=== PATIENT | female | born 1960 | race American Indian/Alaskan Native ===

== ENCOUNTER 2016-10-19 14:10 | Emergency (ER) | payer OTHER ==
[2016-10-19 14:36] VITALS: BP 149/86
--- NOTE | 2016-10-19 15:00 | Emergency Department Report ---
Entered by RAMESH BARRAGAN, acting as scribe for MICHELLE AGARWAL NP. ED General Adult HPI - General Chief complaint: Skin/Abscess/Foreign Body Stated complaint: LUMP ON FOREHEAD Time Seen by Provider: 10/19/16 14:33 Source: patient Mode of arrival: Ambulatory Limitations: No Limitations - History of Present Illness Initial comments: 56 y/o female presents with lump on top of her head that she noticed yesterday while doing her hair at home. Pt denies fever, chills, or FAM. She denies any previous episodes with similar Sx. Pt notes she no longer has menstrual cycles. PT states she was taking out her weave when she thought she felt a bump on her scalp MD Complaint: bump -: days(s) (1) Location: head Radiation: non-radiation Quality: constant Consistency: constant Improves with: none Worsens with: none Associated Symptoms: denies other symptoms. denies: confusion, chest pain, cough, diaphoresis, fever/chills, headaches, loss of appetite, malaise, nausea/ vomiting, rash, seizure, shortness of breath, syncope, weakness Treatments Prior to Arrival: none - Related Data Previous Rx's Medication Instructions Recorded Last Taken Type Cyclobenzaprine [Flexeril 10mg] 10 mg PO TID PRN #30 tablet 06/29/14 Unknown Rx Naproxen [Naprosyn] 500 mg PO BID #30 tablet 06/29/14 Unknown Rx Gentamicin 0.3% Ophth Soln 2 drops OP Q4H #1 bottle 11/15/14 Unknown Rx Ibuprofen [Motrin] 800 mg PO Q8HR PRN #60 tablet 11/15/14 Unknown Rx traMADol [Ultram] 50 mg PO Q6HR PRN #14 tablet 11/15/14 Unknown Rx Albuterol Sulfate [Ventolin HFA] 2 puff IH Q4H PRN #1 hfa.aer.ad 06/05/15 Unknown Rx Azithromycin [Zithromax] 250 mg PO DAILY #1 pkg 06/05/15 Unknown Rx Fluticasone [Flonase] 2 spray NS QDAY #1 bottle 06/05/15 Unknown Rx Loratadine [Claritin] 10 mg PO DAILY #30 tablet 06/05/15 Unknown Rx Prednisone [predniSONE 10 mg 10 mg PO .TAPER #1 tab.ds.pk 06/05/15 Unknown Rx (6-Day Pack, 21 Tabs)] Promethazine /Codeine 5 ml PO Q6H PRN #150 ml 06/05/15 Unknown Rx [Phenergan/Codeine 6.25-10 mg/5 ml] Cephalexin [Keflex] 1,000 mg PO Q12HR #20 cap 09/27/15 Unknown Rx HYDROcodone/APAP 7.5-325 [[place] 1 each PO Q6HR PRN #20 tablet 09/27/15 Unknown Rx 7.5/325] Allergies Allergy/AdvReac Type Severity Reaction Status Date / Time No Known Allergies Allergy Verified 06/05/15 07:54 ED Review of Systems Comment: All other systems reviewed and negative Constitutional: denies: chills, fever, malaise ENT: denies: ear pain Respiratory: denies: cough, shortness of breath Cardiovascular: denies: chest pain Gastrointestinal: denies: abdominal pain, nausea, vomiting, diarrhea Genitourinary: denies: dysuria, frequency, hematuria Musculoskeletal: denies: back pain Skin: other (lump on top of head) Neurological: denies: headache ED Past Medical Hx - Past Medical History Previous Medical History?: Yes Additional medical history: "heart murmur' / LEFT HIP FRACTURE - Surgical History Past Surgical History?: Yes Additional Surgical History: lump removed from right upper rib/side area. - Social History Smoking Status: Never Smoker Substance Use Type: None - Medications Home Medications: Home Medications Medication Instructions Recorded Confirmed Last Taken Type Cyclobenzaprine [Flexeril 10mg] 10 mg PO TID PRN #30 tablet 06/29/14 Unknown Rx Naproxen [Naprosyn] 500 mg PO BID #30 tablet 06/29/14 Unknown Rx Gentamicin 0.3% Ophth Soln 2 drops OP Q4H #1 bottle 11/15/14 Unknown Rx Ibuprofen [Motrin] 800 mg PO Q8HR PRN #60 tablet 11/15/14 Unknown Rx traMADol [Ultram] 50 mg PO Q6HR PRN #14 tablet 11/15/14 Unknown Rx Albuterol Sulfate [Ventolin HFA] 2 puff IH Q4H PRN #1 hfa.aer.ad 06/05/15 Unknown Rx Azithromycin [Zithromax] 250 mg PO DAILY #1 pkg 06/05/15 Unknown Rx Fluticasone [Flonase] 2 spray NS QDAY #1 bottle 06/05/15 Unknown Rx Loratadine [Claritin] 10 mg PO DAILY #30 tablet 06/05/15 Unknown Rx Prednisone [predniSONE 10 mg 10 mg PO .TAPER #1 tab.ds.pk 06/05/15 Unknown Rx (6-Day Pack, 21 Tabs)] Promethazine /Codeine 5 ml PO Q6H PRN #150 ml 06/05/15 Unknown Rx [Phenergan/Codeine 6.25-10 mg/5 ml] Cephalexin [Keflex] 1,000 mg PO Q12HR #20 cap 09/27/15 Unknown Rx HYDROcodone/APAP 7.5-325 [[place] 1 each PO Q6HR PRN #20 tablet 09/27/15 Unknown Rx 7.5/325] ED Physical Exam - General Limitations: No Limitations General appearance: alert, in no apparent distress - Head Head exam: Present: atraumatic, normocephalic, normal inspection - Expanded Head Exam Expanded Head exam: Absent: laceration, abrasion, contusion, hematoma, racoon eyes, rodas's sign, general tenderness 1 - pt states she has a lump. no palpable mass noted - Eye Eye exam: Present: normal appearance, PERRL, EOMI Pupils: Present: normal accommodation - ENT ENT exam: Present: normal orophraynx, mucous membranes moist. Absent: mucous membranes dry - Neck Neck exam: Present: normal inspection, full ROM. Absent: tenderness, meningismus, lymphadenopathy, thyromegaly - Respiratory Respiratory exam: Present: normal lung sounds bilaterally. Absent: respiratory distress, wheezes, rales, rhonchi, stridor - Cardiovascular Cardiovascular Exam: Present: regular rate, normal rhythm, normal heart sounds. Absent: bradycardia, tachycardia, irregular rhythm, systolic murmur, diastolic murmur, rubs, gallop - GI/Abdominal GI/Abdominal exam: Present: soft, normal bowel sounds. Absent: distended, tenderness, guarding, rebound, rigid, hyperactive bowel sounds, hypoactive bowel sounds, mass, bruit - Extremities Exam Extremities exam: Present: normal inspection, full ROM, normal capillary refill. Absent: tenderness, pedal edema, joint swelling, calf tenderness - Back Exam Back exam: Present: normal inspection, full ROM. Absent: tenderness, CVA tenderness (R), CVA tenderness (L), muscle spasm, paraspinal tenderness, vertebral tenderness - Neurological Exam Neurological exam: Present: alert, oriented X3, CN II-XII intact, normal gait, reflexes normal. Absent: abnormal gait, motor sensory deficit - Psychiatric Psychiatric exam: Present: normal affect, normal mood - Skin Skin exam: Present: warm, dry, intact, normal color. Absent: rash, abrasion ED Course Vital Signs 10/19/16 14:35 Temperature 98.4 F Pulse Rate 54 L Respiratory 16 Rate Blood Pressure 149/86 O2 Sat by Pulse 99 Oximetry - Reevaluation(s) Reevaluation #1: 10/19/16 14:58 PT aware no palpable mass noted. pt aware she will need to follow up with PCP. pt has no questions at this time. Strict return precautions reviewed - Pulse Oximetry Interpretation Digit-Finger Initial Pulse Oximetry Readin Actions Taken: none ED Medical Decision Making - Differential Diagnosis abscess, cyst, mass Critical Care Time: No ED Disposition Clinical Impression: Feared condition not demonstrated Disposition: DC-01 TO HOME OR SELFCARE Is pt being admited?: No Does the pt Need Aspirin: No Condition: Stable Instructions: Lymphadenopathy (ED) Additional Instructions: Follow up with PCP in 3-5 days Have your BP rechecked on follow up Return to the ED if you notice skin changes or have swelling to scalp or other concerns Referrals: JESSIE PEREZ MD [Referring] - 3-5 Days [facility] [Outside] - 3-5 Days Forms: Work/School Release Form(ED) Time of Disposition: 14:59 This documentation as recorded by the YUNG velasco RYAN,accurately reflects the service I personally performed and the decisions made by me,MICHELLE AGARWAL NP.
== END 2016-10-19 15:08 | disposition home or self-care (01) ==
LOC: ED 14:10
DX: R22.0 Localized swelling, mass and lump, head (principal)
CPT/HCPCS: 99282

== ENCOUNTER 2016-11-28 10:21 | Emergency (ER) | payer OTHER ==
[2016-11-28 11:09] VITALS: BP 132/75
== END 2016-11-28 18:00 | disposition left against medical advice (07) ==
LOC: ED 10:21
DX: R51 Headache (principal); R11.11 Vomiting without nausea; Z53.21 Procedure and treatment not carried out due to patient leaving prior to being seen by health care provider

== ENCOUNTER 2017-01-10 07:52 | Emergency (ER) | payer OTHER ==
[2017-01-10 08:00] VITALS: BP 120/55
[2017-01-10] MEDS ORDERED: ULTRAM PO ONE (08:17)
[2017-01-10] MEDS ORDERED: MOTRIN PO ONE (08:21)
--- NOTE | 2017-01-10 08:22 | Emergency Department Report ---
ED Back Pain/Injury HPI - General Chief Complaint: Back Pain/Injury Stated Complaint: BACK AND SIDE PAIN W/ FREQUENT URINATION Time Seen by Provider: 01/10/17 08:16 Source: patient Limitations: No Limitations - History of Present Illness Initial Comments: pt is a 56 y/o aaf with nmh who presents for right low back and flank pain x 2 week with frequent urinations, pt tx' [facility] uti at urgent care center 10 dys ago with bactrim however did not take as prescribed as she still has half of her rx in hand. symptoms now include 4/10 right sided low back pain radiating to right lateral leg pain is exacerbated by bending and twisting pain is relieved by ibuprofen 800 mg prn, pt states urinary symptoms also remain frequency and urgency no vaginal discharge no bleeding no fever no chills no nv/v no pelvic or abdominal pain Complaint: back pain Onset/Timin -: days(s) Similar Symptoms Previously: No Place: home Radiation: right leg Severity: moderate Severity scale (0 -10): 4 Quality: aching Consistency: intermittent Improves With: other (ibuprofen) Worsens With: movement Context: turning/twisting, bending Associated Symptoms: denies: confusion, weakness, chest pain, numbness, difficulty walking, cough, difficulty urinating, incontinence, fever/chills, constipation, headaches, abdominal pain, loss of appetite, malaise, nausea/ vomiting, rash, seizure, shortness of breath, syncope - Related Data Previous Rx's Medication Instructions Recorded Last Taken Type Cyclobenzaprine [Flexeril 10mg] 10 mg PO TID PRN #30 tablet 06/29/14 Unknown Rx Naproxen [Naprosyn] 500 mg PO BID #30 tablet 06/29/14 Unknown Rx Gentamicin 0.3% Ophth Soln 2 drops OP Q4H #1 bottle 11/15/14 Unknown Rx Ibuprofen [Motrin] 800 mg PO Q8HR PRN #60 tablet 11/15/14 Unknown Rx traMADol [Ultram] 50 mg PO Q6HR PRN #14 tablet 11/15/14 Unknown Rx Albuterol Sulfate [Ventolin HFA] 2 puff IH Q4H PRN #1 hfa.aer.ad 06/05/15 Unknown Rx Azithromycin [Zithromax] 250 mg PO DAILY #1 pkg 06/05/15 Unknown Rx Fluticasone [Flonase] 2 spray NS QDAY #1 bottle 06/05/15 Unknown Rx Loratadine [Claritin] 10 mg PO DAILY #30 tablet 06/05/15 Unknown Rx Prednisone [predniSONE 10 mg 10 mg PO .TAPER #1 tab.ds.pk 06/05/15 Unknown Rx (6-Day Pack, 21 Tabs)] Promethazine /Codeine 5 ml PO Q6H PRN #150 ml 06/05/15 Unknown Rx [Phenergan/Codeine 6.25-10 mg/5 ml] Cephalexin [Keflex] 1,000 mg PO Q12HR #20 cap 09/27/15 Unknown Rx HYDROcodone/APAP 7.5-325 [[place] 1 each PO Q6HR PRN #20 tablet 09/27/15 Unknown Rx 7.5/325] Cephalexin [Keflex] 500 mg PO BID #14 capsule 01/10/17 Unknown Rx Ibuprofen 800 mg PO TID PRN #30 tablet 01/10/17 Unknown Rx Allergies Allergy/AdvReac Type Severity Reaction Status Date / Time tramadol AdvReac Unknown Verified 01/10/17 08:23 ED Review of Systems ROS: Stated complaint: BACK AND SIDE PAIN W/ FREQUENT URINATION Other details as noted in HPI Constitutional: denies: chills, fever Eyes: denies: eye pain, eye discharge, vision change ENT: denies: ear pain, throat pain Respiratory: denies: cough, shortness of breath, wheezing Cardiovascular: denies: chest pain, palpitations Endocrine: no symptoms reported Gastrointestinal: denies: abdominal pain, nausea, diarrhea Genitourinary: urgency, frequency. denies: hematuria, discharge, abnormal menses, dyspareunia Musculoskeletal: back pain. denies: joint swelling, arthralgia Skin: denies: rash, lesions Neurological: denies: headache, weakness, numbness, paresthesias, confusion, vertigo Psychiatric: denies: anxiety, depression Hematological/Lymphatic: denies: easy bleeding, easy bruising ED Past Medical Hx - Past Medical History Previous Medical History?: Yes Additional medical history: "heart murmur' / LEFT HIP FRACTURE - Surgical History Past Surgical History?: Yes Additional Surgical History: fatty tissue removed from right upper rib/side area, Oral surgery - Social History Smoking Status: Never Smoker Substance Use Type: None - Medications Home Medications: Home Medications Medication Instructions Recorded Confirmed Last Taken Type Cyclobenzaprine [Flexeril 10mg] 10 mg PO TID PRN #30 tablet 06/29/14 Unknown Rx Naproxen [Naprosyn] 500 mg PO BID #30 tablet 06/29/14 Unknown Rx Gentamicin 0.3% Ophth Soln 2 drops OP Q4H #1 bottle 11/15/14 Unknown Rx Ibuprofen [Motrin] 800 mg PO Q8HR PRN #60 tablet 11/15/14 Unknown Rx traMADol [Ultram] 50 mg PO Q6HR PRN #14 tablet 11/15/14 Unknown Rx Albuterol Sulfate [Ventolin HFA] 2 puff IH Q4H PRN #1 hfa.aer.ad 06/05/15 Unknown Rx Azithromycin [Zithromax] 250 mg PO DAILY #1 pkg 06/05/15 Unknown Rx Fluticasone [Flonase] 2 spray NS QDAY #1 bottle 06/05/15 Unknown Rx Loratadine [Claritin] 10 mg PO DAILY #30 tablet 06/05/15 Unknown Rx Prednisone [predniSONE 10 mg 10 mg PO .TAPER #1 tab.ds.pk 06/05/15 Unknown Rx (6-Day Pack, 21 Tabs)] Promethazine /Codeine 5 ml PO Q6H PRN #150 ml 06/05/15 Unknown Rx [Phenergan/Codeine 6.25-10 mg/5 ml] Cephalexin [Keflex] 1,000 mg PO Q12HR #20 cap 09/27/15 Unknown Rx HYDROcodone/APAP 7.5-325 [[place] 1 each PO Q6HR PRN #20 tablet 09/27/15 Unknown Rx 7.5/325] Cephalexin [Keflex] 500 mg PO BID #14 capsule 01/10/17 Unknown Rx Ibuprofen 800 mg PO TID PRN #30 tablet 01/10/17 Unknown Rx ED Physical Exam - General Limitations: No Limitations General appearance: alert, in no apparent distress - Head Head exam: Present: atraumatic, normocephalic - Eye Eye exam: Present: normal appearance, PERRL, EOMI Pupils: Present: normal accommodation - ENT ENT exam: Present: mucous membranes moist - Neck Neck exam: Present: normal inspection, full ROM. Absent: tenderness, lymphadenopathy, thyromegaly - Respiratory Respiratory exam: Present: normal lung sounds bilaterally. Absent: respiratory distress, wheezes, stridor - Cardiovascular Cardiovascular Exam: Present: regular rate, normal rhythm. Absent: systolic murmur, diastolic murmur, rubs, gallop - GI/Abdominal GI/Abdominal exam: Present: soft, normal bowel sounds. Absent: distended, tenderness, guarding, rebound, rigid, organomegaly, mass, bruit, pulsatile mass , hernia - Rectal Rectal exam: Present: deferred - Extremities Exam Extremities exam: Present: normal inspection, full ROM, normal capillary refill. Absent: pedal edema, joint swelling, calf tenderness - Back Exam Back exam: Present: normal inspection, full ROM, tenderness (right lateral flank ), CVA tenderness (R), muscle spasm, paraspinal tenderness. Absent: CVA tenderness (L), vertebral tenderness, rash noted - Expanded Back Exam Expanded Back exam: Absent: saddle anesthesia Back exam: Sciatic Notch Tenderness: Right, Positive Straight Leg Raise: Right, Negative Straight Leg Raising: Left - Neurological Exam Neurological exam: Present: alert, oriented X3, CN II-XII intact, normal gait, reflexes normal. Absent: motor sensory deficit - Psychiatric Psychiatric exam: Present: normal affect, normal mood - Skin Skin exam: Present: warm, dry, intact, normal color. Absent: rash ED Course Vital Signs 01/10/17 07:57 Temperature 98.3 F Pulse Rate 70 Respiratory 16 Rate Blood Pressure 120/55 O2 Sat by Pulse 98 Oximetry ED Medical Decision Making - Lab Data Laboratory Tests 01/10/17 08:36 Urine Color Straw Urine Turbidity Clear Urine pH 6.0 Ur Specific [place] 1.013 Urine Protein <15 mg/dl Urine Glucose (UA) Neg Urine Ketones Neg Urine Blood Neg Urine Nitrite Neg Urine Bilirubin Neg Urine Urobilinogen < 2.0 Ur Leukocyte Esterase Mod Urine WBC (Auto) 1.0 Urine RBC (Auto) 1.0 U Epithel Cells (Auto) < 1.0 Urine Mucus Few - Medical Decision Making pt is a 56 y/o aaf with nmh who presents for right low back and flank pain x 2 week with frequent urinations, pt tx' for uti at urgent care center 10 dys ago with bactrim however did not take as prescribed as she still has half of her rx in hand. symptoms now include 4/10 right sided low back pain radiating to right lateral leg pain is exacerbated by bending and twisting pain is relieved by ibuprofen 800 mg prn, pt states urinary symptoms also remain frequency and urgency no vaginal discharge no bleeding no fever no chills no nv/v no pelvic or abdominal pain exam: pt rec'd a/o x 3 appears well nontoxic well nourished well hydrated, no posterior vertebral point tenderness, rom intact , pos straight leg raise right at 60 degrees sitting, there is no weakness, numbness, tingling, or paresthesia pt is ambulatory gait is steady, noted mild right cva tenderness, Ua: leuks, wbc , given hx will tx for uti with keflex, and ibuprofen, will follow up with [facility] [phone], pt verbalized agreement and understanding with same. Critical care attestation.: If time is entered above; I have spent that time in minutes in the direct care of this critically ill patient, excluding procedure time. ED Disposition Clinical Impression: UTI (urinary tract infection) Qualifiers: Urinary tract infection type: acute cystitis Hematuria presence: without hematuria Qualified Code(s): N30.00 - Acute cystitis without hematuria Back pain Qualifiers: Back pain location: low back pain Chronicity: acute Back pain laterality: right Sciatica presence: with sciatica Sciatica laterality: sciatica of right side Qualified Code(s): M54.41 - Lumbago with sciatica, right side Disposition: - TO HOME OR SELFCARE Is pt being admited?: No Does the pt Need Aspirin: No Condition: Good Instructions: Urinary Tract Infection in Women (ED), Low Back Strain (ED) Additional Instructions: follow up with [facility] in 2 days Prescriptions: Cephalexin [Keflex] 500 mg PO BID #14 capsule Ibuprofen 800 mg PO TID PRN #30 tablet PRN Reason: Pain Referrals: PRIMARY CARE, [Primary Care Provider] - 3-5 Days Forms: Work/School Release Form(ED) Time of Disposition: 09:21
[2017-01-10 08:50] LABS: Bilirubin,Urine NEG (Negative); Blood,Urine NEG (Negative); Ketones,Urine NEG (Negative); Leukocyte Esterase,Urine MOD (Negative); Mucus,Urine FEW /HPF; Nitrite,Urine NEG (Negative); Protein,Urine <15 mg/dL mg/dL (Negative); Urobilinogen,Urine < 2.0 mg/dL (<2.0)
== END 2017-01-10 09:40 | disposition home or self-care (01) ==
LOC: ED 07:52
DX: N30.00 Acute cystitis without hematuria (principal); M54.41 Lumbago with sciatica, right side
CPT/HCPCS: 81001

== ENCOUNTER 2017-06-25 07:43 | Emergency (ER) | payer OTHER ==
[2017-06-25 09:43] LABS: Bilirubin,Urine NEG (Negative); Blood,Urine NEG (Negative); Color,Urine Yellow (Yellow); Mucus,Urine FEW /HPF; Protein,Urine <15 mg/dL mg/dL (Negative); Urobilinogen,Urine < 2.0 mg/dL (<2.0)
--- NOTE | 2017-06-25 10:31 | Emergency Department Report ---
ED Abdominal Pain HPI - General Chief Complaint: Abdominal Pain Stated Complaint: LEFT FLANK PAIN Time Seen by Provider: 06/25/17 10:19 Source: patient Mode of arrival: Ambulatory Limitations: No Limitations - History of Present Illness MD Complaint: flank pain (Left flank pain, 1 week, occasional nausea, now mild was modearte. no cp or sob ) -: Gradual, week(s) (1) Location: L flank Radiation: none Severity: mild Severity scale (0 -10): 3 Quality: aching Consistency: other (better now) Associated Symptoms: other (no cp or sob or back or neck pain or h/a or visual distrubances, no gait distubances no h/a no tia or cva like symptoms. no acs like signs or symptoms). denies: vomiting, diarrhea, fever, constipation, dysuria, hematemesis, hematochezia, melena, hematuria, anorexia, syncope - Related Data Previous Rx's Medication Instructions Recorded Last Taken Type Cyclobenzaprine [Flexeril 10mg] 10 mg PO TID PRN #30 tablet 06/29/14 Unknown Rx Naproxen [Naprosyn] 500 mg PO BID #30 tablet 06/29/14 Unknown Rx Gentamicin 0.3% Ophth Soln 2 drops OP Q4H #1 bottle 11/15/14 Unknown Rx Ibuprofen [Motrin] 800 mg PO Q8HR PRN #60 tablet 11/15/14 Unknown Rx traMADol [Ultram] 50 mg PO Q6HR PRN #14 tablet 11/15/14 Unknown Rx Albuterol Sulfate [Ventolin HFA] 2 puff IH Q4H PRN #1 hfa.aer.ad 06/05/15 Unknown Rx Azithromycin [Zithromax] 250 mg PO DAILY #1 pkg 06/05/15 Unknown Rx Fluticasone [Flonase] 2 spray NS QDAY #1 bottle 06/05/15 Unknown Rx Loratadine [Claritin] 10 mg PO DAILY #30 tablet 06/05/15 Unknown Rx Prednisone [predniSONE 10 mg 10 mg PO .TAPER #1 tab.ds.pk 06/05/15 Unknown Rx (6-Day Pack, 21 Tabs)] Promethazine /Codeine 5 ml PO Q6H PRN #150 ml 06/05/15 Unknown Rx [Phenergan/Codeine 6.25-10 mg/5 ml] Cephalexin [Keflex] 1,000 mg PO Q12HR #20 cap 09/27/15 Unknown Rx HYDROcodone/APAP 7.5-325 [[employer] 1 each PO Q6HR PRN #20 tablet 09/27/15 Unknown Rx 7.5/325] Cephalexin [Keflex] 500 mg PO BID #14 capsule 01/10/17 Unknown Rx Ibuprofen 800 mg PO TID PRN #30 tablet 01/10/17 Unknown Rx Allergies Allergy/AdvReac Type Severity Reaction Status Date / Time No Known Allergies Allergy Unverified 06/25/17 08:03 ED Review of Systems ROS: Stated complaint: LEFT FLANK PAIN Other details as noted in HPI Constitutional: denies: chills, fever Eyes: denies: eye pain, eye discharge, vision change ENT: denies: ear pain, throat pain Respiratory: denies: cough, shortness of breath, wheezing Cardiovascular: denies: chest pain, palpitations Endocrine: no symptoms reported Gastrointestinal: nausea, other (l flank pain, aching). denies: abdominal pain , diarrhea Genitourinary: denies: urgency, dysuria, discharge Musculoskeletal: denies: back pain, joint swelling, arthralgia Skin: denies: rash, lesions Neurological: denies: headache, weakness, paresthesias Psychiatric: denies: anxiety, depression Hematological/Lymphatic: denies: easy bleeding, easy bruising ED Past Medical Hx - Past Medical History Previous Medical History?: No Additional medical history: "heart murmur' / LEFT HIP FRACTURE - Surgical History Hx Appendectomy: Yes Additional Surgical History: fatty tissue removed from right upper rib/side area, Oral surgery - Social History Smoking Status: Never Smoker Substance Use Type: None - Medications Home Medications: Home Medications Medication Instructions Recorded Confirmed Last Taken Type Cyclobenzaprine [Flexeril 10mg] 10 mg PO TID PRN #30 tablet 06/29/14 Unknown Rx Naproxen [Naprosyn] 500 mg PO BID #30 tablet 06/29/14 Unknown Rx Gentamicin 0.3% Ophth Soln 2 drops OP Q4H #1 bottle 11/15/14 Unknown Rx Ibuprofen [Motrin] 800 mg PO Q8HR PRN #60 tablet 11/15/14 Unknown Rx traMADol [Ultram] 50 mg PO Q6HR PRN #14 tablet 11/15/14 Unknown Rx Albuterol Sulfate [Ventolin HFA] 2 puff IH Q4H PRN #1 hfa.aer.ad 06/05/15 Unknown Rx Azithromycin [Zithromax] 250 mg PO DAILY #1 pkg 06/05/15 Unknown Rx Fluticasone [Flonase] 2 spray NS QDAY #1 bottle 06/05/15 Unknown Rx Loratadine [Claritin] 10 mg PO DAILY #30 tablet 06/05/15 Unknown Rx Prednisone [predniSONE 10 mg 10 mg PO .TAPER #1 tab.ds.pk 06/05/15 Unknown Rx (6-Day Pack, 21 Tabs)] Promethazine /Codeine 5 ml PO Q6H PRN #150 ml 06/05/15 Unknown Rx [Phenergan/Codeine 6.25-10 mg/5 ml] Cephalexin [Keflex] 1,000 mg PO Q12HR #20 cap 09/27/15 Unknown Rx HYDROcodone/APAP 7.5-325 [[employer] 1 each PO Q6HR PRN #20 tablet 09/27/15 Unknown Rx 7.5/325] Cephalexin [Keflex] 500 mg PO BID #14 capsule 01/10/17 Unknown Rx Ibuprofen 800 mg PO TID PRN #30 tablet 01/10/17 Unknown Rx ED Physical Exam - General Limitations: No Limitations General appearance: alert, in no apparent distress - Head Head exam: Present: atraumatic, normocephalic - Eye Eye exam: Present: normal appearance - ENT ENT exam: Present: normal orophraynx, mucous membranes moist - Neck Neck exam: Present: normal inspection - Respiratory Respiratory exam: Present: normal lung sounds bilaterally. Absent: respiratory distress, rhonchi, stridor, decreased breath sounds, prolonged expiratory - Cardiovascular Cardiovascular Exam: Present: regular rate, normal rhythm, normal heart sounds. Absent: systolic murmur, diastolic murmur, rubs, gallop - GI/Abdominal GI/Abdominal exam: Present: soft, normal bowel sounds. Absent: distended, tenderness, guarding, rebound, rigid, mass - Extremities Exam Extremities exam: Present: normal inspection - Back Exam Back exam: Present: normal inspection, full ROM. Absent: tenderness - Neurological Exam Neurological exam: Present: alert, altered, oriented X3, CN II-XII intact, normal gait, motor sensory deficit - Psychiatric Psychiatric exam: Present: normal affect, normal mood. Absent: anxious - Skin Skin exam: Present: warm, dry, intact, normal color. Absent: rash ED Course Vital Signs 06/25/17 08:00 Temperature 98.2 F Pulse Rate 68 Respiratory 18 Rate Blood Pressure 140/74 O2 Sat by Pulse 96 Oximetry ED Medical Decision Making - Lab Data Result diagrams: 06/25/17 12:09 06/25/17 12:09 - Radiology Data Radiology results: report reviewed (non obstructing tiny stone to R kidney. no diverticulitis or l hydro or any other abnormality) interpreted by me: ct results were discussed with pt, and pt was advised to establish a pmd, and a GI and obtain colonsocopy. - Medical Decision Making PT DOES NOT HAVE KIDNEY STONE OR DIVERTIC OR COLITIS, PT DOES NOT HAVE UTI. NOW PT GIVES ADDITONAL HX THAT PAIN OS TENDER, ALOMNG BONY MARY IN L FLANK, AND HURTS WHEN SHE " TWISTS" PT DENIES CP AND L ARM PAIN AND TEETH OR JAW PAIN OR SMOKING, AND PT STATES NO VOM OR DIARRHEA. pT DID SAW INCREASED FREQUENCY, BUT REPORTED DRINKING MORE WATER. UA AND LABS WERE NORMAL. PTS PAIN IS PROBABLY MUSKULOSKELETAL.PT ADVISED TO ESTABLISH PMD AND GI-FOR COLONOSCOPY AND TO CONTINUE TO SEARCH FOR ANSWERS. WITH [employer]ICONDU[employer] PACKAGES LEAK TESTER - Differential Diagnosis KIDNEY STONE, AAA, UTI, COLITIS Critical Care Time: No Critical care attestation.: If time is entered above; I have spent that time in minutes in the direct care of this critically ill patient, excluding procedure time. ED Disposition Clinical Impression: Left flank pain, Total bilirubin, elevated Disposition: DC-01 TO HOME OR SELFCARE Is pt being admited?: No Does the pt Need Aspirin: No Condition: Stable Instructions: Abdominal Pain (ED) Additional Instructions: We were unable to find an emergent reason to explain your symptoms. Our radiologist has reported that you had a tiny non obstructing kidney stone in the right kidney, but no other findings. Our lab reported that your urine did not show a urine infection pattern. Establish a primary care doctor, and continue to search for answers. Establish a internal audit consultant and arrange a screening colonoscopy.nery doctor should also do cholesterol screening and electrocardiogram. Return immediately if you have pain, or feel sick, or have trouble breathing or have fever. Additionally, your bilirubin lab test was elevated. You must arrange an evaluation with a primary doctor and internal audit consultant promplty. Referrals: PRIMARY CARE, [Primary Care Provider] - 3-5 Days ROMA RABAGO MD [Staff Physician] - 3-5 Days BELLE FORD MD [Staff Physician] - 3-5 Days
[2017-06-25] MEDS ORDERED: ZOFRAN ODT PO ONE (10:32)
--- NOTE | 2017-06-25 11:20 | Cat Scan Report ---
CT scan of abdomen and pelvis without IV contrast: History: Left flank pain. Nausea. Findings: Normal lung bases. No pleural or pericardial effusion. Normal liver spleen pancreas and gallbladder. Normal adrenals. Nonobstructing 2 mm calculus right kidney. No calculi left kidney. No evidence of hydronephrosis. Normal bladder. No free intraperitoneal fluid or air. No evidence of adenopathy. Normal aorta. Gaseous colon with stool in colon. No evidence of bowel distention or wall thickening. No evidence of diverticulitis. Impression: Nonobstructing tiny calculus right kidney. No evidence of diverticulitis or left hydronephrosis.
[2017-06-25 12:59] LABS: Hematocrit 41.5 % (30.3-42.9); Hemoglobin 14.7 gm/dl (10.1-14.3); Mean Corpuscular HGB Conc 35 % (30-34); Mean Corpuscular Hemoglobin 32 pg (28-32); Mean Corpuscular Volume 89 fl (79-97); Platelet Count 313 K/mm3 (140-440); Red Blood Count 4.65 M/mm3 (3.65-5.03); Red Cell Distribution Width 12.7 % (13.2-15.2)
[2017-06-25 13:28] LABS: BUN/Creatinine Ratio 23; Blood Urea Nitrogen 9 mg/dL (7-17); Calcium 9.5 mg/dL (8.4-10.2); Hemolysis Index 230; Lipase 22 units/L (13-60)
[2017-06-25 13:43] LABS: Basophils % (Manual) 0 % (0.0-1.8); Eosinophils % (Manual) 0 % (0.0-4.3); Platelet Estimate Consistent w Auto; Total Cells Counted 100
[2017-06-25 14:17] LABS: Alanine Aminotransferase 17 units/L (7-56)
[2017-06-25 14:33] VITALS: BP 123/75
== END 2017-06-25 14:32 | disposition home or self-care (01) ==
LOC: ED 07:43
DX: R17 Unspecified jaundice (principal)
CPT/HCPCS: 36415; 74176; 80053; 81001; 83690; 85007; 85025; 99284; Q0162

== ENCOUNTER 2017-10-10 01:27 | Emergency (ER) | payer OTHER ==
[2017-10-10 03:04] VITALS: BP 125/73
--- NOTE | 2017-10-10 03:25 | Emergency Department Report ---
ED ENT HPI - General Chief complaint: Earache Stated complaint: RT EARACHE Time Seen by Provider: 10/10/17 03:08 Source: patient Mode of arrival: Ambulatory Limitations: No Limitations - History of Present Illness Initial comments: Patient is a 57-year-old female who presents for right ear and sinus pain 2 days symptoms include sinus pressure right ear pressure patient denies fever or chills symptoms are exacerbated by movement and postion. there is no sorethroat no dizziness no lightheadedness no n/v no veritigo complaint: ear pain Onset/Timin -: days(s) Location: R ear Severity: moderate Severity scale (0 -10): 4 Quality: aching, other (pressure ) Consistency: constant Improves with: none Worsens with: position, movement Associated Symptoms: fever, cough. denies: gum swelling, toothache, pain with swallowing, sore throat, tinnitus, hearing loss, discharge from ear, rhinorrhea - Related Data Previous Rx's Medication Instructions Recorded Last Taken Type Cyclobenzaprine [Flexeril 10mg] 10 mg PO TID PRN #30 tablet 06/29/14 Unknown Rx Naproxen [Naprosyn] 500 mg PO BID #30 tablet 06/29/14 Unknown Rx Gentamicin 0.3% Ophth Soln 2 drops OP Q4H #1 bottle 11/15/14 Unknown Rx Ibuprofen [Motrin] 800 mg PO Q8HR PRN #60 tablet 11/15/14 Unknown Rx traMADol [Ultram] 50 mg PO Q6HR PRN #14 tablet 11/15/14 Unknown Rx Albuterol Sulfate [Ventolin HFA] 2 puff IH Q4H PRN #1 hfa.aer.ad 06/05/15 Unknown Rx Azithromycin [Zithromax] 250 mg PO DAILY #1 pkg 06/05/15 Unknown Rx Fluticasone [Flonase] 2 spray NS QDAY #1 bottle 06/05/15 Unknown Rx Loratadine [Claritin] 10 mg PO DAILY #30 tablet 06/05/15 Unknown Rx Prednisone [predniSONE 10 mg 10 mg PO .TAPER #1 tab.ds.pk 06/05/15 Unknown Rx (6-Day Pack, 21 Tabs)] Promethazine /Codeine 5 ml PO Q6H PRN #150 ml 06/05/15 Unknown Rx [Phenergan/Codeine 6.25-10 mg/5 ml] Cephalexin [Keflex] 1,000 mg PO Q12HR #20 cap 09/27/15 Unknown Rx HYDROcodone/APAP 7.5-325 [[place] 1 each PO Q6HR PRN #20 tablet 09/27/15 Unknown Rx 7.5/325] Cephalexin [Keflex] 500 mg PO BID #14 capsule 01/10/17 Unknown Rx Ibuprofen 800 mg PO TID PRN #30 tablet 01/10/17 Unknown Rx Amoxicillin/Potassium Clav 1 each PO BID #20 tablet 10/10/17 Unknown Rx [Augmentin 875-125 Tablet] Dexamethasone [Decadron] 4 mg PO Q12H #6 tablet 10/10/17 Unknown Rx Ibuprofen 800 mg PO TID PRN #30 tablet 10/10/17 Unknown Rx Metoclopramide [Reglan] 10 mg PO TID PRN #30 tab 10/10/17 Unknown Rx diphenhydrAMINE [Benadryl CAP] 25 mg PO Q8HR PRN #30 capsule 10/10/17 Unknown Rx Allergies Allergy/AdvReac Type Severity Reaction Status Date / Time No Known Allergies Allergy Unverified 06/25/17 08:03 ED Dental HPI - General Chief complaint: Earache Stated complaint: RT EARACHE Time Seen by Provider: 10/10/17 03:08 Source: patient Mode of arrival: Ambulatory Limitations: No Limitations - Related Data Previous Rx's Medication Instructions Recorded Last Taken Type Cyclobenzaprine [Flexeril 10mg] 10 mg PO TID PRN #30 tablet 06/29/14 Unknown Rx Naproxen [Naprosyn] 500 mg PO BID #30 tablet 06/29/14 Unknown Rx Gentamicin 0.3% Ophth Soln 2 drops OP Q4H #1 bottle 11/15/14 Unknown Rx Ibuprofen [Motrin] 800 mg PO Q8HR PRN #60 tablet 11/15/14 Unknown Rx traMADol [Ultram] 50 mg PO Q6HR PRN #14 tablet 11/15/14 Unknown Rx Albuterol Sulfate [Ventolin HFA] 2 puff IH Q4H PRN #1 hfa.aer.ad 06/05/15 Unknown Rx Azithromycin [Zithromax] 250 mg PO DAILY #1 pkg 06/05/15 Unknown Rx Fluticasone [Flonase] 2 spray NS QDAY #1 bottle 06/05/15 Unknown Rx Loratadine [Claritin] 10 mg PO DAILY #30 tablet 06/05/15 Unknown Rx Prednisone [predniSONE 10 mg 10 mg PO .TAPER #1 tab.ds.pk 06/05/15 Unknown Rx (6-Day Pack, 21 Tabs)] Promethazine /Codeine 5 ml PO Q6H PRN #150 ml 06/05/15 Unknown Rx [Phenergan/Codeine 6.25-10 mg/5 ml] Cephalexin [Keflex] 1,000 mg PO Q12HR #20 cap 09/27/15 Unknown Rx HYDROcodone/APAP 7.5-325 [[place] 1 each PO Q6HR PRN #20 tablet 09/27/15 Unknown Rx 7.5/325] Cephalexin [Keflex] 500 mg PO BID #14 capsule 01/10/17 Unknown Rx Ibuprofen 800 mg PO TID PRN #30 tablet 01/10/17 Unknown Rx Amoxicillin/Potassium Clav 1 each PO BID #20 tablet 10/10/17 Unknown Rx [Augmentin 875-125 Tablet] Dexamethasone [Decadron] 4 mg PO Q12H #6 tablet 10/10/17 Unknown Rx Ibuprofen 800 mg PO TID PRN #30 tablet 10/10/17 Unknown Rx Metoclopramide [Reglan] 10 mg PO TID PRN #30 tab 10/10/17 Unknown Rx diphenhydrAMINE [Benadryl CAP] 25 mg PO Q8HR PRN #30 capsule 10/10/17 Unknown Rx Allergies Allergy/AdvReac Type Severity Reaction Status Date / Time No Known Allergies Allergy Unverified 06/25/17 08:03 ED Review of Systems ROS: Stated complaint: RT EARACHE Other details as noted in HPI Constitutional: no symptoms reported, malaise Eyes: denies: eye pain, eye discharge, vision change ENT: ear pain, congestion (head congestion ). denies: throat pain, dental pain , hearing loss, epistaxis Respiratory: denies: cough, shortness of breath, wheezing Cardiovascular: denies: chest pain, palpitations Endocrine: no symptoms reported Gastrointestinal: denies: abdominal pain, nausea, diarrhea Genitourinary: denies: urgency, dysuria, discharge Musculoskeletal: denies: back pain, joint swelling, arthralgia Skin: denies: rash, lesions Neurological: denies: headache, weakness, numbness, paresthesias, confusion, abnormal gait, vertigo Psychiatric: denies: anxiety, depression Hematological/Lymphatic: denies: easy bleeding, easy bruising, swollen glands ED Past Medical Hx - Past Medical History Previous Medical History?: Yes Hx Hypertension: Yes Hx GERD: Yes Hx Arthritis: Yes Additional medical history: "heart murmur' - Surgical History Hx Appendectomy: Yes Additional Surgical History: fatty tissue removed from right upper rib/side area, Oral surgery - Social History Smoking Status: Never Smoker - Medications Home Medications: Home Medications Medication Instructions Recorded Confirmed Last Taken Type Cyclobenzaprine [Flexeril 10mg] 10 mg PO TID PRN #30 tablet 06/29/14 Unknown Rx Naproxen [Naprosyn] 500 mg PO BID #30 tablet 06/29/14 Unknown Rx Gentamicin 0.3% Ophth Soln 2 drops OP Q4H #1 bottle 11/15/14 Unknown Rx Ibuprofen [Motrin] 800 mg PO Q8HR PRN #60 tablet 11/15/14 Unknown Rx traMADol [Ultram] 50 mg PO Q6HR PRN #14 tablet 11/15/14 Unknown Rx Albuterol Sulfate [Ventolin HFA] 2 puff IH Q4H PRN #1 hfa.aer.ad 06/05/15 Unknown Rx Azithromycin [Zithromax] 250 mg PO DAILY #1 pkg 06/05/15 Unknown Rx Fluticasone [Flonase] 2 spray NS QDAY #1 bottle 06/05/15 Unknown Rx Loratadine [Claritin] 10 mg PO DAILY #30 tablet 06/05/15 Unknown Rx Prednisone [predniSONE 10 mg 10 mg PO .TAPER #1 tab.ds.pk 06/05/15 Unknown Rx (6-Day Pack, 21 Tabs)] Promethazine /Codeine 5 ml PO Q6H PRN #150 ml 06/05/15 Unknown Rx [Phenergan/Codeine 6.25-10 mg/5 ml] Cephalexin [Keflex] 1,000 mg PO Q12HR #20 cap 09/27/15 Unknown Rx HYDROcodone/APAP 7.5-325 [[place] 1 each PO Q6HR PRN #20 tablet 09/27/15 Unknown Rx 7.5/325] Cephalexin [Keflex] 500 mg PO BID #14 capsule 01/10/17 Unknown Rx Ibuprofen 800 mg PO TID PRN #30 tablet 01/10/17 Unknown Rx Amoxicillin/Potassium Clav 1 each PO BID #20 tablet 10/10/17 Unknown Rx [Augmentin 875-125 Tablet] Dexamethasone [Decadron] 4 mg PO Q12H #6 tablet 10/10/17 Unknown Rx Ibuprofen 800 mg PO TID PRN #30 tablet 10/10/17 Unknown Rx Metoclopramide [Reglan] 10 mg PO TID PRN #30 tab 10/10/17 Unknown Rx diphenhydrAMINE [Benadryl CAP] 25 mg PO Q8HR PRN #30 capsule 10/10/17 Unknown Rx ED Physical Exam - General Limitations: No Limitations General appearance: alert, in no apparent distress, obese - Head Head exam: Present: atraumatic, normocephalic, normal inspection - Eye Eye exam: Present: normal appearance, PERRL, EOMI, conjunctival injection Pupils: Present: normal accommodation - ENT ENT exam: Present: normal orophraynx, mucous membranes moist, TM's normal bilaterally, normal external ear exam - Expanded ENT Exam Expanded TM/Canal exam: Erythema: Right TM (AOM right ), Effusion: Right TM, Left TM, Cerumen Impaction: Left TM, Right TM Mouth exam: Present: normal external inspection, tongue normal. Absent: trismus , tongue elevation, laceration Teeth exam: Present: normal inspection. Absent: dental tenderness # Throat exam: Positive: normal inspection, tonsillar erythema, tonsillomegaly, R peritonsillar mass, L peritonsillar mass - Neck Neck exam: Present: normal inspection, full ROM. Absent: tenderness, meningismus, lymphadenopathy, thyromegaly - Respiratory Respiratory exam: Present: normal lung sounds bilaterally, chest wall tenderness. Absent: respiratory distress - Cardiovascular Cardiovascular Exam: Present: regular rate, normal rhythm, normal heart sounds. Absent: tachycardia, systolic murmur, diastolic murmur, rubs, gallop - GI/Abdominal GI/Abdominal exam: Present: soft. Absent: distended, tenderness - Rectal Rectal exam: Present: deferred - Extremities Exam Extremities exam: Present: normal inspection - Back Exam Back exam: Present: normal inspection. Absent: tenderness, CVA tenderness (R), CVA tenderness (L), paraspinal tenderness, vertebral tenderness - Neurological Exam Neurological exam: Present: alert, oriented X3, CN II-XII intact, normal gait, reflexes normal - Psychiatric Psychiatric exam: Present: normal affect, normal mood - Skin Skin exam: Present: warm, dry, intact, normal color. Absent: rash ED Course Vital Signs 10/10/17 03:02 Temperature 98.2 F Pulse Rate 64 Respiratory 20 Rate Blood Pressure 125/73 O2 Sat by Pulse 99 Oximetry ED Medical Decision Making - Lab Data aom URI - Medical Decision Making This is a straightforward otitis media with mild right effusion with URI pain is 4/10 Aching exacerbated by movement , plan: augmentin , ultram, decadron, Benadryl, and tylenol pt will follow up with pcp in 2-3 days Critical care attestation.: If time is entered above; I have spent that time in minutes in the direct care of this critically ill patient, excluding procedure time. ED Disposition Clinical Impression: URI (upper respiratory infection) Qualifiers: URI type: unspecified viral URI Qualified Code(s): J06.9 - Acute upper respiratory infection, unspecified AOM (acute otitis media) Qualifiers: Otitis media type: serous Laterality: left Recurrence: not specified as recurrent Qualified Code(s): H65.02 - Acute serous otitis media, left ear Disposition: TO HOME OR SELFCARE Is pt being admited?: No Does the pt Need Aspirin: No Condition: Good Instructions: Otitis Media (ED) Prescriptions: Amoxicillin/Potassium Clav [Augmentin 875-125 Tablet] 1 each PO BID #20 tablet Dexamethasone [Decadron] 4 mg PO Q12H #6 tablet diphenhydrAMINE [Benadryl CAP] 25 mg PO Q8HR PRN #30 capsule PRN Reason: congestion , ear pain Ibuprofen 800 mg PO TID PRN #30 tablet PRN Reason: headache pain Metoclopramide [Reglan] 10 mg PO TID PRN #30 tab PRN Reason: Headache Referrals: [facility] [Outside] - 3-5 Days Forms: Work/School Release Form(ED) Time of Disposition: 04:03
[2017-10-10] MEDS ORDERED: MOTRIN PO ONE (03:28)
== END 2017-10-10 04:15 | disposition home or self-care (01) ==
LOC: ED 01:27
DX: H65.01 Acute serous otitis media, right ear (principal); J06.9 Acute upper respiratory infection, unspecified; I10 Essential (primary) hypertension; K21.9 Gastro-esophageal reflux disease without esophagitis; M19.90 Unspecified osteoarthritis, unspecified site; Z90.49 Acquired absence of other specified parts of digestive tract
CPT/HCPCS: 99282

== ENCOUNTER 2018-10-13 12:00 | Emergency (ER) | payer OTHER ==
[2018-10-13 12:23] VITALS: BP 142/64
--- NOTE | 2018-10-13 12:23 | Emergency Department Report ---
ED Rash HPI - HPI Chief Complaint: Skin Rash Stated Complaint: LFT LEG BITE/PAIN Time Seen by Provider: 10/13/18 12:19 Duration: 1 Day Location: Lower Extremities Suspected Cause: Insect Rash Symptoms: Yes Itching, No Facial Swelling Severity: mild Other History: insect bite to leg. pt concerned spider bite. no bulls ey e/necrosis. pt ambulatory and non toxic ED Review of Systems ROS: Stated complaint: LFT LEG BITE/PAIN Other details as noted in HPI Comment: All other systems reviewed and negative ED Past Medical Hx - Past Medical History Previous Medical History?: Yes Hx Hypertension: Yes Hx GERD: Yes Hx Arthritis: Yes Additional medical history: "heart murmur' - Surgical History Past Surgical History?: Yes Hx Appendectomy: Yes Additional Surgical History: fatty tissue removed from right upper rib/side area, Oral surgery - Social History Smoking Status: Never Smoker - Medications Home Medications: Home Medications Medication Instructions Recorded Confirmed Last Taken Type Cyclobenzaprine [Flexeril 10mg] 10 mg PO TID PRN #30 tablet 06/29/14 Unknown Rx Naproxen [Naprosyn] 500 mg PO BID #30 tablet 06/29/14 Unknown Rx Gentamicin 0.3% Ophth Soln 2 drops OP Q4H #1 bottle 11/15/14 Unknown Rx Ibuprofen [Motrin] 800 mg PO Q8HR PRN #60 tablet 11/15/14 Unknown Rx traMADol [Ultram] 50 mg PO Q6HR PRN #14 tablet 11/15/14 Unknown Rx Albuterol Sulfate [Ventolin HFA] 2 puff IH Q4H PRN #1 hfa.aer.ad 06/05/15 Unknown Rx Azithromycin [Zithromax] 250 mg PO DAILY #1 pkg 06/05/15 Unknown Rx Fluticasone [Flonase] 2 spray NS QDAY #1 bottle 06/05/15 Unknown Rx Loratadine [Claritin] 10 mg PO DAILY #30 tablet 06/05/15 Unknown Rx Prednisone [predniSONE 10 mg 10 mg PO .TAPER #1 tab.ds.pk 06/05/15 Unknown Rx (6-Day Pack, 21 Tabs)] Promethazine /Codeine 5 ml PO Q6H PRN #150 ml 06/05/15 Unknown Rx [Phenergan/Codeine 6.25-10 mg/5 ml] HYDROcodone/APAP 7.5-325 [[place] 1 each PO Q6HR PRN #20 tablet 09/27/15 Unknown Rx 7.5/325] cephALEXin [Keflex] 1,000 mg PO Q12HR #20 cap 09/27/15 Unknown Rx Cephalexin [Keflex] 500 mg PO BID #14 capsule 01/10/17 Unknown Rx Ibuprofen 800 mg PO TID PRN #30 tablet 01/10/17 Unknown Rx Amoxicillin/Potassium Clav 1 each PO BID #20 tablet 10/10/17 Unknown Rx [Augmentin 875-125 Tablet] Ibuprofen [Ibuprofen 800] 800 mg PO TID PRN #30 tablet 10/10/17 Unknown Rx Metoclopramide [Reglan] 10 mg PO TID PRN #30 tab 10/10/17 Unknown Rx dexAMETHasone [Decadron] 4 mg PO Q12H #6 tablet 10/10/17 Unknown Rx diphenhydrAMINE [Benadryl CAP] 25 mg PO Q8HR PRN #30 capsule 10/10/17 Unknown Rx Rash Exam - Exam General: Vital signs noted. No distress. Alert and acting appropriately. HEENT: No Periorbital Edema Lungs: Yes Good Air Exchange Heart: Yes Regular Skin: Yes Erythema, No Urticarial Rash, No Maculopapular Rash Other: Positive: Abdomen Normal, Neurologic Normal, Musculoskeletal Normal ED Medical Decision Making - Medical Decision Making insect bite lle suspect tick wound cleaned dc home with dc plan of care no fever/no other symptoms Critical care attestation.: If time is entered above; I have spent that time in minutes in the direct care of this critically ill patient, excluding procedure time. ED Disposition Clinical Impression: Insect bite Disposition: DC-01 TO HOME OR SELFCARE Is pt being admited?: No Does the pt Need Aspirin: No Condition: Stable Instructions: Insect Bite or Sting (ED) Additional Instructions: keep wound cleaned with soap and water do not pick at wound Referrals: [facility] [Outside] - 3-5 Days Time of Disposition: 12:24
== END 2018-10-13 12:33 | disposition home or self-care (01) ==
LOC: ED 12:00
DX: S80.862A Insect bite (nonvenomous), left lower leg, initial encounter (principal); I10 Essential (primary) hypertension; K21.9 Gastro-esophageal reflux disease without esophagitis; Y92.89 Other specified places as the place of occurrence of the external cause; M19.90 Unspecified osteoarthritis, unspecified site; Z79.899 Other long term (current) drug therapy; Z90.89 Acquired absence of other organs; W57.XXXA Bitten or stung by nonvenomous insect and other nonvenomous arthropods, initial encounter; Y93.89 Activity, other specified; Y99.8 Other external cause status

== ENCOUNTER 2019-02-14 05:56 | Emergency (ER) | payer OTHER ==
[2019-02-14 06:09] VITALS: BP 131/76
--- NOTE | 2019-02-14 07:15 | Emergency Department Report ---
ED Neck Pain/Injury HPI - General Chief Complaint: Neck Pain/Injury Stated Complaint: NECK PAIN Time Seen by Provider: 02/14/19 07:09 Mode of arrival: Ambulatory Limitations: No Limitations - History of Present Illness Initial Comments: 58 year old male with no significant past medical hx presents to ED c/o posterior neck pain. Onset gradually 2 weeks ago. She denies any particular injury or strenous activity. She states pain radiates into occipital aspect of head when she moves her neck. Neck pain is worse with turning her head to right. She reports intermittent dizziness but with the pain. She states motrin does provide some relief with the pain. She denies any focal weakness, numbness, tingling, chest pain, SOB, vision changes or speech changes or any other symptoms at this time. MD Complaint: neck pain -: Gradual, week(s) (2) Radiation: head Severity: moderate, constant Improves With: medication OTC/prescribe Worsens With: movement of neck Context: unknown Associated Symptoms: headache, other Treatments Prior to Arrival: none - Related Data Previous Rx's Medication Instructions Recorded Last Taken Type Cyclobenzaprine [Flexeril 10mg] 10 mg PO TID PRN #30 tablet 06/29/14 Unknown Rx Naproxen [Naprosyn] 500 mg PO BID #30 tablet 06/29/14 Unknown Rx Gentamicin 0.3% Ophth Soln 2 drops OP Q4H #1 bottle 11/15/14 Unknown Rx traMADoL [Ultram] 50 mg PO Q6HR PRN #14 tablet 11/15/14 Unknown Rx Albuterol Sulfate [Ventolin HFA] 2 puff IH Q4H PRN #1 hfa.aer.ad 06/05/15 Unknown Rx Azithromycin [Zithromax] 250 mg PO DAILY #1 pkg 06/05/15 Unknown Rx Fluticasone [Flonase] 2 spray NS QDAY #1 bottle 06/05/15 Unknown Rx Loratadine (Nf) [Claritin] 10 mg PO DAILY #30 tablet 06/05/15 Unknown Rx Prednisone [predniSONE 10 mg 10 mg PO .TAPER #1 tab.ds.pk 06/05/15 Unknown Rx (6-Day Pack, 21 Tabs)] Promethazine /Codeine 5 ml PO Q6H PRN #150 ml 06/05/15 Unknown Rx [Phenergan/Codeine 6.25-10 mg/5 ml] HYDROcodone/APAP 7.5-325 [Emerson 1 each PO Q6HR PRN #20 tablet 09/27/15 Unknown Rx 7.5/325] cephALEXin [Keflex] 1,000 mg PO Q12HR #20 cap 09/27/15 Unknown Rx Cephalexin [Keflex] 500 mg PO BID #14 capsule 01/10/17 Unknown Rx Ibuprofen 800 mg PO TID PRN #30 tablet 01/10/17 Unknown Rx Amoxicillin/Potassium Clav 1 each PO BID #20 tablet 10/10/17 Unknown Rx [Augmentin 875-125 Tablet] Ibuprofen [Ibuprofen 800] 800 mg PO TID PRN #30 tablet 10/10/17 Unknown Rx Metoclopramide [Reglan] 10 mg PO TID PRN #30 tab 10/10/17 Unknown Rx dexAMETHasone [Decadron] 4 mg PO Q12H #6 tablet 10/10/17 Unknown Rx diphenhydrAMINE [Benadryl CAP] 25 mg PO Q8HR PRN #30 capsule 10/10/17 Unknown Rx Cyclobenzaprine [Flexeril] 10 mg PO TID PRN #30 tablet 02/14/19 Unknown Rx Ibuprofen [Motrin 800 MG tab] 800 mg PO Q8HR PRN #60 tablet 02/14/19 Unknown Rx Allergies Allergy/AdvReac Type Severity Reaction Status Date / Time No Known Allergies Allergy Unverified 06/25/17 08:03 ED Review of Systems ROS: Stated complaint: NECK PAIN Other details as noted in HPI Comment: All other systems reviewed and negative Musculoskeletal: other (posterior neck pain) Neurological: headache, other (intermittent dizziness with pain) ED Past Medical Hx - Past Medical History Previous Medical History?: Yes Hx Hypertension: Yes Hx GERD: Yes Hx Arthritis: Yes Additional medical history: "heart murmur" - Surgical History Past Surgical History?: Yes Hx Appendectomy: Yes Additional Surgical History: fatty tissue removed from right upper rib/side area - Social History Smoking Status: Never Smoker - Medications Home Medications: Home Medications Medication Instructions Recorded Confirmed Last Taken Type Cyclobenzaprine [Flexeril 10mg] 10 mg PO TID PRN #30 tablet 06/29/14 Unknown Rx Naproxen [Naprosyn] 500 mg PO BID #30 tablet 06/29/14 Unknown Rx Gentamicin 0.3% Ophth Soln 2 drops OP Q4H #1 bottle 11/15/14 Unknown Rx traMADoL [Ultram] 50 mg PO Q6HR PRN #14 tablet 11/15/14 Unknown Rx Albuterol Sulfate [Ventolin HFA] 2 puff IH Q4H PRN #1 hfa.aer.ad 06/05/15 Unk nown Rx Azithromycin [Zithromax] 250 mg PO DAILY #1 pkg 06/05/15 Unknown Rx Fluticasone [Flonase] 2 spray NS QDAY #1 bottle 06/05/15 Unknown Rx Loratadine (Nf) [Claritin] 10 mg PO DAILY #30 tablet 06/05/15 Unknown Rx Prednisone [predniSONE 10 mg 10 mg PO .TAPER #1 tab.ds.pk 06/05/15 Unknown Rx (6-Day Pack, 21 Tabs)] Promethazine /Codeine 5 ml PO Q6H PRN #150 ml 06/05/15 Unknown Rx [Phenergan/Codeine 6.25-10 mg/5 ml] HYDROcodone/APAP 7.5-325 [Emerson 1 each PO Q6HR PRN #20 tablet 09/27/15 Unknown Rx 7.5/325] cephALEXin [Keflex] 1,000 mg PO Q12HR #20 cap 09/27/15 Unknown Rx Cephalexin [Keflex] 500 mg PO BID #14 capsule 01/10/17 Unknown Rx Ibuprofen 800 mg PO TID PRN #30 tablet 01/10/17 Unknown Rx Amoxicillin/Potassium Clav 1 each PO BID #20 tablet 10/10/17 Unknown Rx [Augmentin 875-125 Tablet] Ibuprofen [Ibuprofen 800] 800 mg PO TID PRN #30 tablet 10/10/17 Unknown Rx Metoclopramide [Reglan] 10 mg PO TID PRN #30 tab 10/10/17 Unknown Rx dexAMETHasone [Decadron] 4 mg PO Q12H #6 tablet 10/10/17 Unknown Rx diphenhydrAMINE [Benadryl CAP] 25 mg PO Q8HR PRN #30 capsule 10/10/17 Unknown Rx Cyclobenzaprine [Flexeril] 10 mg PO TID PRN #30 tablet 02/14/19 Unknown Rx Ibuprofen [Motrin 800 MG tab] 800 mg PO Q8HR PRN #60 tablet 02/14/19 Unknown Rx ED Physical Exam - General Limitations: No Limitations General appearance: alert, in no apparent distress - Head Head exam: Present: atraumatic, normocephalic - Eye Eye exam: Present: normal appearance, PERRL, EOMI - Neck Neck exam: Present: normal inspection, tenderness (Mild midline ttp and left paraspinal muscle ttp as well as trapezius ttp with muscle spasms noted. Mild pain with ROM of neck but its otherwise normal), full ROM - Respiratory Respiratory exam: Present: normal lung sounds bilaterally - Cardiovascular Cardiovascular Exam: Present: regular rate, normal rhythm - Neurological Exam Neurological exam: Present: alert, oriented X3, CN II-XII intact, normal gait, other (Sensation intact). Absent: motor sensory deficit - Expanded Neurological Exam Expanded Speech: Present: fluid speech - Psychiatric Psychiatric exam: Present: normal affect, normal mood - Skin Skin exam: Present: intact ED Course Vital Signs 02/14/19 05:59 Temperature 97.7 F Pulse Rate 72 Respiratory 16 Rate Blood Pressure 131/76 O2 Sat by Pulse 96 Oximetry ED Medical Decision Making - Radiology Data Radiology results: report reviewed - Medical Decision Making Cervical spine x-ray reviewed and discussed with patient. Patient is well- appearing, she is not toxic, she is alert and oriented 3, she is neurologically intact. No further workup indicated at this time. Patient given referral to Dr Lynne. Recommend outpatient MRI of neck if pain continues. Patient stable at d/c but she understands to return to ED if worse. Critical care attestation.: If time is entered above; I have spent that time in minutes in the direct care of this critically ill patient, excluding procedure time. ED Disposition Clinical Impression: DDD (degenerative disc disease), cervical, Muscle spasms of neck Disposition: DC-01 TO HOME OR SELFCARE Is pt being admited?: No Does the pt Need Aspirin: No Condition: Stable Instructions: Muscle Spasm (ED), Degenerative Disc Disease (ED) Prescriptions: Cyclobenzaprine [Flexeril] 10 mg PO TID PRN #30 tablet PRN Reason: Muscle Spasm Ibuprofen [Motrin 800 MG tab] 800 mg PO Q8HR PRN #60 tablet PRN Reason: Pain Referrals: PRIMARY CARE, [Primary Care Provider] - 3-5 Days Time of Disposition: 08:42
[2019-02-14] MEDS ORDERED: DEXAMETHASONE 4 MG TAB PO ONE (07:16)
[2019-02-14] MEDS ORDERED: CYCLOBENZAPRINE 10 MG TAB PO ONE (07:17)
--- NOTE | 2019-02-14 08:32 | XRay Report ---
CERVICAL SPINE 3 VIEWS INDICATION / CLINICAL INFORMATION: Neck pain COMPARISON: None available. FINDINGS: BONES / JOINT(S): No acute fracture or subluxation. Mild degenerative disc disease greatest C6-C7 whe re changes are mild/moderate. SOFT TISSUES: No significant abnormality. ADDITIONAL FINDINGS: None. Signer Name: Sergio Clayton MD Signed: 02/14/2019 8:28 AM Workstation Name: [id number]
== END 2019-02-14 08:48 | disposition home or self-care (01) ==
LOC: ED 05:56
DX: M62.838 Other muscle spasm (principal); M50.30 Other cervical disc degeneration, unspecified cervical region; I10 Essential (primary) hypertension; K21.9 Gastro-esophageal reflux disease without esophagitis; M19.90 Unspecified osteoarthritis, unspecified site; Z90.89 Acquired absence of other organs; Z79.899 Other long term (current) drug therapy
CPT/HCPCS: 72040; 99283; J8540

== ENCOUNTER 2020-06-16 10:38 | Emergency (ER) | payer OTHER ==
[2020-06-16 10:43] VITALS: BP 134/71
== END 2020-06-16 10:44 | disposition left against medical advice (07) ==
LOC: ED 10:38
DX: K62.5 Hemorrhage of anus and rectum (principal); Z53.21 Procedure and treatment not carried out due to patient leaving prior to being seen by health care provider